=== PATIENT | male | born 1970 | race Caucasian/White ===

== ENCOUNTER 2017-08-19 17:30 | Observation (INO) | payer BC ==
[~2017-08-19] VITALS: Ht 188 cm; Wt 109.0 kg
[~2017-08-19 17:30] MED LIST: AUGMENTIN875TAB PO; CYCLOBENZAPR10 MG PO; LAMISIL AT1 % EX; NAPROSYN500 MG PO; ULTRAM50 MG OR
[2017-08-19] MEDS ORDERED: ATENOLOL25 MG PO (17:51)
[2017-08-19] MEDS ORDERED: CYCLOBENZAPR10 MG PO (17:52)
[2017-08-19] MEDS ORDERED: BUPROPION300 MG PO (17:53)
[2017-08-19] MEDS ORDERED: TRAMADOL HYDROC50 MG PO (17:54)
[2017-08-19] MEDS ORDERED: TESTOSTERO (17:54)
[2017-08-19 18:07] LABS: HEMATOCRIT 41.1 % (39.0-50.0); HEMOGLOBIN 14.4 g/dl (14.0-18.0); IMMATURE GRANULOCYTES 0.4 % (0.0-1.0); MEAN CELL VOLUME 87.8 fL CALC (80.0-100.0); MEAN CORPUSCULAR HGB 30.8 pG CALC (26.0-32.0); NEUT# 8.25 thou/uL (1.82-7.42); RED BLOOD COUNT 4.68 mill/uL (4.70-6.10); RED CELL DISTRI WIDTH 12.9 % (11.5-15.5)
[2017-08-19 18:17] LABS: ALBUMIN 4.7 g/dL (3.2-5.0); ALKALINE PHOSPHATASE 82 u/l (38-126); ANION GAP 15 (6-22 (CALC)); BUN 10 mg/dL (9-20); BUN/CREATININE RATIO 16 (12-20 (CALC)); CALCIUM 9.1 mg/dL (8.4-10.2); CARBON DIOXIDE 28 mmol/l (22-30); CHLORIDE 92 mmol/l (95-108); CREATININE 0.7 mg/dL (0.7-1.3); GFR > 60 ML/MIN (>=60 (CALC)); GFR FOR AFR.AMER. > 60 ML/MIN (>=60 (CALC)); GLUCOSE 122 mg/dL (75-110); LIPASE 30 u/l (23-300); POTASSIUM 4.2 mmol/l (3.5-5.1); SGOT/AST 29 u/l (17-59); SGPT/ALT 37 u/l (21-72); SODIUM 131 mmol/l (137-146); TOTAL PROTEIN 7.6 g/dL (6.3-8.2)
[2017-08-19 20:07] LABS: URINE BILIRUBIN - DIPSTICK NEGATIVE (NEGATIVE); URINE BLOOD DIPSTICK NEGATIVE (NEGATIVE); URINE CLARITY CLEAR; URINE COLOR YELLOW; URINE GLUCOSE - DIPSTICK NEGATIVE (NEGATIVE); URINE KETONE NEGATIVE (NEGATIVE); URINE LEUK ESTERASE NEGATIVE (NEGATIVE); URINE NITRITE - DIPSTICK NEGATIVE (Negative); URINE PH 5.5 (4.5-8.0); URINE PROTEIN - DIPSTICK NEGATIVE (NEG-TRACE); URINE SPECIFIC GRAVITY <=1.005; URINE UROBILINOGEN - DIPSTICK 0.2 E.U./dL (0.2)
[2017-08-19 22:00] VITALS: BP 123/75
[2017-08-20 04:43] VITALS: BP 150/82
[2017-08-20 05:56] LABS: CHOLESTEROL HDL RATIO 3.4 (<4.4 (CALC))
[2017-08-20 08:34] VITALS: BP 139/84
[2017-08-20] MEDS ORDERED: ASPIRIN ADULT L81 M2 PO (10:19)
[2017-08-20 12:15] VITALS: BP 134/87
== END 2017-08-20 11:24 | disposition home or self-care (01) | DRG 313 ==
LOC: ED 17:30 → ED-I 20:26 → ED 21:35 → ED-I 21:42 → ED 21:43 → MS2 21:44
PROVIDERS: Emergency Medicine; Family Medicine; ADMIT Internal Medicine; ATTEND Internal Medicine
DX: R07.89 Other chest pain (principal); I10 Essential (primary) hypertension; F32.9 Major depressive disorder, single episode, unspecified; G89.29 Other chronic pain; M54.2 Cervicalgia; M62.838 Other muscle spasm; G44.209 Tension-type headache, unspecified, not intractable; Z82.49 Family history of ischemic heart disease and other diseases of the circulatory system
CPT/HCPCS: G0378